=== PATIENT | male | born 1990 | race African-American/Black ===

== ENCOUNTER 2016-07-19 21:59 | Emergency (ER) | payer OTHER ==
--- NOTE | ~2016-07-19 | CT2 ---
[facility] A Service of [facility] RADIOLOGY TEXT RESULTS PATIENT: SHERLYN OSWALD LOCATION: [facility] : [birth year] UNIT #: [id number] AGE: [address]: Jayjay Zhang MD SEX: M ORDER DR: [id number] [facility] [address] [place], [place] [address] [id number] MR#: [id number] Acc #: [id number] NAME: SHERLYN OSWALD : 1990 SEX: M STUDY DATE/TIME: 07/20/2016 0:20 UNIT: [facility] ROOM: STUDY DESCRIPTION: CT Abd and Pelv W Cont Attending Physician: Jayjay Zhang M.D. Ordering Physician: Jayjay Zhang M.D. Primary Care Physician: Primary Care Physician No MEDICAL IMAGING REPORT This report is preliminary unless electronic signature is present EXAM CT abdomen and pelvis with contrast INDICATIONS Diarrhea, left-sided abdomen pain for a week. TECHNIQUE Axial 5 mm images were obtained through the abdomen and pelvis with IV contrast. The patient was given 100 mL of Isovue-370. This CT exam was performed with one or more of the following radiation dose reduction techniques: Automatic exposure control, adjustment of mA and/or kV according to patient size, and iterative reconstruction. FINDINGS There is dense infiltrate in the left lower lobe measuring about 5 cm in diameter consistent with pneumonia. The liver, spleen, pancreas, adrenal glands and kidneys are normal. There is a small gallstone in the gallbladder. There is a defect in the mid abdominal wall through which fat and perhaps a small loop of bowel is herniating. There is no obstruction. The opening is at least 3 cm in diameter. There seems to be postoperative change in this region. The rest of the bowel is normal. The bladder and prostate gland are normal. The bones are unremarkable. IMPRESSION 1. Dense 5 cm infiltrate left lower lobe, consistent with pneumonia. 2. The patient seems to have postoperative changes involving the anterior abdominal wall, and there is about a 3 cm defect in the abdominal wall with fat and soft tissue herniating outward. It is difficult to tell if there is a single loop of small bowel contained within this hernia, but there is no evidence of obstruction. 3. Small gallstone. [facility]. [facility] A Service of [facility] & [facility] RADIOLOGY TEXT RESULTS PATIENT: SHERLYN OSWALD LOCATION: [facility] : [birth year] UNIT #: [id number] AGE: [address]: Jayjay Zhang MD SEX: M ORDER DR: Dictated by... Lyndon Arriaza M.D. THIS IS AN ELECTRONICALLY VERIFIED REPORT Lyndon Arriaza M.D. at 07/20/2016 5:54 AM FEL/psc TD: 07/20/2016 03:54 JOB #: [id number] MEDICAL IMAGING REPORT Page 1 of 1 COPY
[2016-07-19 20:33] LABS: BASOPHIL% 0.3 % (0-2.5); EOSINOPHIL% 0.3 % (0.0-7.0); HEMATOCRIT 41.3 % (38.0-50.0); HEMOGLOBIN 14.1 gm/dL (13.0-16.0); LYMPHOCYTE# 1.4 X10e3 (1.0-3.5); LYMPHOCYTE% 12.8 % (17.0-45.0); MEAN CELL VOLUME 84.4 FL (83-96); MEAN CORPUSCULAR HEMOGLOBIN 28.9 PG (28-34); MEAN CORPUSCULAR HGB CONC 34.2 g/dL (30-36); MONOCYTE# 1.3 X10e3 (0-1.0); MONOCYTE% 11.9 % (3.0-12.0); NEUTROPHIL% 74.7 % (40-75); PLATELET COUNT 234 X10e3 (140-420); RED CELL DISTRIBUTION WIDTH 13.6 % (11.0-15.5); WHITE BLOOD COUNT 10.8 X10e3 (4.0-10.5)
[2016-07-19 20:36] LABS: DIFF IND NO
[2016-07-19 20:55] LABS: ALBUMIN SERUM 3.8 g/dL (3.5-5.0); BILIRUBIN, DIRECT 0.1 mg/dL (0.0-0.2); BILIRUBIN,INDIRECT 0.6 mg/dL (0.0-0.9); BILIRUBIN,TOTAL 0.7 mg/dL (0.2-2.0); BUN/CREATININE RATIO 18.88; CALCIUM SERUM 9.4 mg/dL (8.4-10.2); CREATININE SERUM 0.9 mg/dL (0.6-1.4); POTASSIUM 3.6 mmol/L (3.5-5.1); PROTEIN TOTAL SERUM 7.8 g/dL (6.0-8.3)
[~2016-07-19 21:59] MED LIST: FLEXERIL10 MG PO; PERCOCET PO; VICODIN
[2016-07-19 22:09] LABS: URINE SOURCE CLEAN CATCH
[2016-07-19 22:15] LABS: URINE APPEARANCE CLEAR; URINE BILIRUBIN NEG (NEG); URINE BLOOD NEG (NEG); URINE COLOR YELLOW; URINE GLUCOSE NEG (NEG); URINE KETONE 1+ (NEG); URINE LEUKOCYTE ESTERASE NEG (NEG); URINE NITRATE NEG (NEG); URINE PH 6.5 (5-8); URINE PROTEIN 1+ (NEG); URINE SPECIFIC GRAVITY 1.016 (1.003-1.035); URINE UROBILINOGEN 0.2 MG/DL (NEG)
[2016-07-19 22:18] LABS: URBCS1 AUWI 0-2 /[HPF] (0-2); URINE BACTERIA AUWI NEG (NEGATIVE); URINE SQUAMOUS EPITHELIAL CELL NONE SEEN /[HPF]; UWBCS1 AUWI 0-2 (0-5)
[2016-07-19 22:33] LABS: CULTURE INDICATED? NO
== END 2016-07-20 02:49 | disposition home or self-care (01) ==
LOC: CED 21:59
DX: R10.9 Unspecified abdominal pain (principal); R19.7 Diarrhea, unspecified; J18.1 Lobar pneumonia, unspecified organism; F17.200 Nicotine dependence, unspecified, uncomplicated
CPT/HCPCS: 36415; 74177; 80048; 80076; 81003; 83690; 85025; 96361; 96374; 96375; 99284; J2270; J2405; Q9967